=== PATIENT | female | born 1960 | race Caucasian/White ===

== ENCOUNTER 2017-04-01 19:35 | Emergency (ER) | payer BC ==
[~2017-04-01] VITALS: Ht 165.1 cm; Wt 79.4 kg
[2017-04-01 19:58] VITALS: BP 160/85
[2017-04-01] MEDS ORDERED: ACETAMINOPHEN/CODEINE 300/30MG TABLET. PO ONE (20:00)
--- NOTE | 2017-04-01 20:02 | PHYS DOC ---
Adult General Chief Complaint Chief Complaint: FOOT INJURY PAIN HPI HPI Patient is a 56 year old female presents to the emergency department with complaints of right ankle pain. Patient states approximately 30 minutes prior to arrival she was walking down the steps when she misstepped and fell down 2 steps. She describes an inversion injury to the ankle. She's had swelling and discomfort to the ankle since that time. She has been able to transient extremity since that time. She has no complaints of any pain. Patient reports she took Advil prior to arrival in the emergency department. We will put ice on it Review of Systems Review of Systems Constitutional: Denies fever or chills [] Eyes: Denies change in visual acuity, redness, or eye pain [] HENT: Denies nasal congestion or sore throat [] Respiratory: Denies cough or shortness of breath [] Cardiovascular: No additional information not addressed in HPI [] GI: Denies abdominal pain, nausea, vomiting, bloody stools or diarrhea [] : Denies dysuria or hematuria [] Musculoskeletal: Right ankle pain Integument: Denies rash or skin lesions [] Neurologic: Denies headache, focal weakness or sensory changes [] Endocrine: Denies polyuria or polydipsia [] Current Medications Current Medications Current Medications Medications (Trade) Dose Ordered Sig/Jenni Start Time Stop Time Status Last Admin Dose Admin Acetaminophen/ Codeine Phosphate (Tylenol #3) 1 tab 1X ONCE 04/01/17 20:00 04/01/17 20:01 DC 04/01/17 20:08 1 TAB Allergies Allergies Allergies Coded Allergies Type Severity Reaction Last Updated Verified Penicillins Allergy Intermediate Itching 04/01/17 Yes Sulfa (Sulfonamide Antibiotics) Allergy Intermediate Itching 04/01/17 Yes Physical Exam Physical Exam Constitutional: Well developed, well nourished, no acute distress, non-toxic appearance. [] Neck: Normal range of motion, no midline or paracervical tenderness, supple, no stridor. [] Cardiovascular:Heart rate regular rhythm, no murmur [] Skin: Warm, dry, no erythema, no rash. [] Back: No tenderness, no CVA tenderness. [] Extremities: Right lower extremity: Right hip and right knee exam unremarkable. Right ankle with diffuse swelling laterally and dorsally. Patient has mild tenderness to palpate lateral malleolus with increasing tenderness over the dorsal aspect of the ankle. She has no pain to palpate the base of fifth metatarsal. Her neurovascular is intact distally. Achilles tendon is intact. She has no pain to palpate over the calcaneus. Neurologic: Alert and oriented X 3, normal motor function, normal sensory function, no focal deficits noted. [] Psychologic: Affect normal, judgement normal, mood normal. [] Current Patient Data Vital Signs Vital Signs Date Time Temp Pulse Resp B/P (MAP) Pulse Ox O2 Delivery O2 Flow Rate FiO2 04/01/17 20:08 18 98 Room Air 04/01/17 19:58 97.7 93 97.7 EKG EKG [] Radiology/Procedures Radiology/Procedures Include x-ray reviewed by this provider, no acute any changes, soft tissue swelling present[] Course & Med Decision Making Course & Med Decision Making Pertinent Labs and Imaging studies reviewed. (See chart for details) []Patient will be placed in an Aircast by nursing staff, crutch instruction provided. Neurovascular intact post splint placement. Patient was a provided with information for sprain and restless compress elevate. She did state that she would probably not follow these instructions. I advised her of the benefit of following the medical information provided to her to allow for upper healing and faster healing. Dragon Disclaimer Dragon Disclaimer This electronic medical record was generated, in whole or in part, using a voice recognition dictation system. Departure Departure Impression: Primary Impression: Ankle sprain [facility]errals: [facility], [facility] Patient Instructions: Ankle Sprain, RICE - Routine Care for Injuries Scripts Acetaminophen With Codeine (TYLENOL WITH CODEINE #3 TABLET) 1 Each Tablet 1 TAB PO PRN Q6HRS Y for PAIN, #15 TAB Prov: KIN MONTESINOS APRN 04/01/17 Problem Qualifiers Primary Impression: Ankle sprain Encounter type: initial encounter Involved ligament of ankle: unspecified ligament Laterality: right Qualified Codes: S93.401A - Sprain of unspecified ligament of right ankle, initial encounter KIN MONTESINOS APRN Apr 01, 2017 20:01
[2017-04-01] MEDS ORDERED: ACET-704 PO (20:30)
--- NOTE | 2017-04-02 08:36 | RAD ---
Right ankle 3 views. History: Fall, inversion injury, pain lateral ankle 3 views were taken of the right ankle. There is no fracture noted. There is mild soft tissue swelling. Impression: 1. Soft tissue swelling right ankle. 2. No acute fracture.
== END 2017-04-01 20:50 | disposition home or self-care (01) ==
LOC: ER 19:35
DX: S93.401A Sprain of unspecified ligament of right ankle, initial encounter (principal); Z88.0 Allergy status to penicillin; Z88.2 Allergy status to sulfonamides; W10.9XXA Fall (on) (from) unspecified stairs and steps, initial encounter; Y93.39 Activity, other involving climbing, rappelling and jumping off; Y92.89 Other specified places as the place of occurrence of the external cause; Y99.8 Other external cause status
CPT/HCPCS: 29515; 73610; 99284-25